=== PATIENT | male | born 1945 | race Caucasian/White ===

== ENCOUNTER 2017-09-14 10:34 | Inpatient (IN) | payer MEDICARE, BC ==
[2017-09-13 15:25] LABS: BASOPHILS % (AUTO) 0.4 % (0-1); EOSINOPHILS # (AUTO) 0.1 X10'3 (0-0.9); EOSINOPHILS % (AUTO) 1.3 % (0-6); HEMATOCRIT 47.3 % (42.0-52.0); HEMOGLOBIN 16.1 g/dl (14.0-17.9); LYMPHOCYTES # (AUTO) 1.6 X10'3 (1.1-4.8); MEAN CORPUSCULAR HEMOGLOBIN 32.2 PG (27.0-31.0); MEAN CORPUSCULAR VOLUME 94.7 FL (78-98); MEAN PLATELET VOLUME 7.2 FL (7.4-10.4); MONOCYTES # (AUTO) 0.6 X10'3 (0-0.9); MONOCYTES % (AUTO) 6.1 % (2-12); NEUTROPHILS # (AUTO) 7.2 X10'3 (1.8-7.7); NEUTROPHILS % (AUTO) 75.2 % (42-75); PLATELET COUNT 230 X10'3 (140-440); RED BLOOD COUNT 4.99 X10'6 (4.70-6.10); RED CELL DISTRIBUTION WIDTH 14.4 % (11.5-14.5); WHITE BLOOD COUNT 9.5 X10'3 (4.5-11.0)
[2017-09-13 15:35] LABS: PARTIAL THROMBOPLASTIN TIME 26 SECONDS (22-32); PROTHROMBIN TIME 10.3 SECONDS (9.0-12.0)
[2017-09-13 15:36] LABS: ALBUMIN 3.4 G/DL (3.4-5.0); ANION GAP 9 (8-16); BLOOD UREA NITROGEN 25 MG/DL (7-18); BUN/CREATININE RATIO 18.7 (5.4-32.0); CALCIUM 8.5 MG/DL (8.5-10.1); CHLORIDE 104 MMOL/L (99-107); CREATININE 1.34 MG/DL (0.60-1.10); GLUCOSE 201 MG/DL (70-104); POTASSIUM 4.2 MMOL/L (3.5-5.1); SODIUM 139 MMOL/L (135-145); TOTAL CARBON DIOXIDE 26.3 MMOL/L (24-32); eGFR 52 ML/MIN
[2017-09-14] VITALS (15 sets, daily range): BP systolic 91–166; BP diastolic 41–76
[~2017-09-14] VITALS: Ht 167.6 cm; Wt 94.7 kg
[2017-09-14] MEDS ORDERED: LORazepam 0.5 MG tablet PO PRN (11:00)
[2017-09-14] MEDS ORDERED: diphenhydrAMINE 25mg capsule PO PRN (11:00)
[2017-09-14] MEDS ORDERED: LOSA50TA37 PO (11:24)
[2017-09-14] MEDS ORDERED: METO-395 PO (11:24)
[2017-09-14] MEDS ORDERED: ASPI-1265 PO (11:24)
[2017-09-14] MEDS ORDERED: MV-M1TAB19 PO (11:24)
[2017-09-14] MEDS ORDERED: PRAV40TA3 PO (11:24)
[2017-09-14] MEDS ORDERED: TICA90TA2 PO (11:24)
[2017-09-14] MEDS ORDERED: LINA5TAB4 PO (11:24)
[2017-09-14] MEDS: normal saline 1000ml 1,000 ML IV SCH ×2 (12:16→21:00)
[2017-09-14] MEDS ORDERED: fentaNYL/PF 50MCG/1 ML 2ML syringe ONE (14:06)
[2017-09-14] MEDS ORDERED: iohexol 350MG/ML 100ml bottle IV ONE (14:06)
[2017-09-14] MEDS ORDERED: iohexol 350 MG/ML 50ML vial IV ONE (14:06)
[2017-09-14] MEDS ORDERED: midazolam 2 mg/2 ml injection ONE (14:06)
[2017-09-14] MEDS ORDERED: nitroGLYCERIN-Tridil 50MG/D5W 250 ML IV ONE (14:06)
[2017-09-14] MEDS ORDERED: LIDOcaine 1% w/EPI 1:100,000 30ml vial (MDV) ONE (14:06)
[2017-09-14] MEDS ORDERED: heparin 1,000unit/ml 10ml vial 10 ML ONE (14:06)
[2017-09-14] MEDS ORDERED: iohexol 350 MG/1 ML 200ml bottle ONE (15:00)
[2017-09-14] MEDS ORDERED: ticagrelor 90mg tablet ONE (15:44)
[2017-09-14] MEDS ORDERED: proCHLORperazine 10 MG/2 ml inj IV PRN (16:45)
[2017-09-14] MEDS ORDERED: OXAZEpam 15mg capsule PO PRN (16:45)
[2017-09-14] MEDS ORDERED: magnesium hydroxide 30ml (MOM) UD suspension PO PRN (16:45)
[2017-09-14] MEDS ORDERED: HYDROcodone/acetaminophen 10/325mg tab PO PRN (16:45)
[2017-09-14] MEDS ORDERED: acetaminophen 325mg tablet PO PRN (16:45)
[2017-09-14] MEDS ORDERED: cyclobenzaprine 10mg tablet PO PRN (16:45)
[2017-09-14] MEDS ORDERED: heparin 10,000 units/1 ML INJ IV PRN (16:50)
[2017-09-14] MEDS: sodium bicarbonate (8.4%) inj. 150 MEQ in sodium chloride 0.45% 1,000 ML IV SCH (18:09)
[2017-09-14] MEDS ORDERED: ticagrelor 90mg tablet PO SCH (20:00)
[2017-09-14] MEDS: docusate sod 100mg capsule PO SCH (21:32)
[2017-09-14] MEDS: HYDROcodone/acetaminophen 10/325mg tab PO PRN (21:34)
[2017-09-14] MEDS ORDERED: acetylcysteine 200 MG/ml 4ml vial PO ONE (22:35)
[2017-09-15] VITALS (18 sets, daily range): BP systolic 126–172; BP diastolic 54–71
[2017-09-15] MEDS ORDERED: hydrALAZINE 20mg/ml inj. IV PRN
[2017-09-15] MEDS ORDERED: nitroGLYCERIN-Tridil 50MG/D5W 250 ML IV PRN
[2017-09-15 04:11] LABS: CHOL/HDL RATIO 3.2 (0.00-4.99); CHOLESTEROL 111 MG/DL (0-200); HDL CHOLESTEROL 35 MG/DL (35-60); LDL CHOLESTEROL 69 MG/DL (50-100); TRIGLYCERIDES 64 MG/DL (20-135)
[2017-09-15] MEDS: sodium bicarbonate (8.4%) inj. 150 MEQ in sodium chloride 0.45% 1,000 ML IV SCH ×2 (05:15→06:26)
[2017-09-15] MEDS ORDERED: fentaNYL/PF 50MCG/1 ML 2ML syringe ONE (06:17)
[2017-09-15] MEDS ORDERED: nitroGLYCERIN-Tridil 50MG/D5W 250 ML IV ONE (06:17)
[2017-09-15] MEDS ORDERED: iohexol 350 MG/1 ML 200ml bottle ONE (06:17)
[2017-09-15] MEDS ORDERED: LIDOcaine 1% w/EPI 1:100,000 30ml vial (MDV) ONE ×2 (06:17→14:10)
[2017-09-15] MEDS ORDERED: heparin 1,000unit/ml 10ml vial 10 ML ONE (06:17)
[2017-09-15] MEDS ORDERED: midazolam 2 mg/2 ml injection ONE (06:17)
[2017-09-15] MEDS: normal saline 1000ml 1,000 ML IV SCH ×2 (07:00→17:00)
[2017-09-15] MEDS ORDERED: atropine 0.1mg/ml 10ml syringe ONE (07:31)
[2017-09-15] MEDS ORDERED: iohexol 350MG/ML 100ml bottle IV ONE (07:53)
[2017-09-15] MEDS: ticagrelor 90mg tablet PO SCH ×2 (08:00→19:17)
[2017-09-15] MEDS ORDERED: linagliptin 5mg tablet PO SCH (08:00)
[2017-09-15] MEDS ORDERED: non-formulary drug (Mv-Mn/Iron/Fa/Herbal Cmplx#190 (Vitamin D3 Complete Caplet) 1 EACH) PO SCH (08:00)
[2017-09-15] MEDS ORDERED: losartan 50mg tablet PO SCH (08:00)
[2017-09-15] MEDS ORDERED: aspirin 81mg tab.chew PO SCH ×2 (08:00)
[2017-09-15] MEDS ORDERED: metoprolol succinate 25mg (24-HOUR) SR. Tablet PO SCH (08:00)
[2017-09-15] MEDS ORDERED: pravastatin 40mg tablet PO SCH (08:00)
[2017-09-15] MEDS ORDERED: heparin 1,000 UNITS/NS 500ml 500 ML ONE (08:07)
[2017-09-15] MEDS ORDERED: HYDROmorphone 1 mg/ml syringe ONE (08:24)
[2017-09-15] MEDS ORDERED: ticagrelor 90mg tablet ONE (08:27)
[2017-09-15] MEDS: acetylcysteine 200 MG/ml 4ml vial PO SCH ×2 (10:12→19:17)
[2017-09-15] MEDS: docusate sod 100mg capsule PO SCH ×2 (10:13→19:17)
[2017-09-15] MEDS: HYDROcodone/acetaminophen 10/325mg tab PO PRN (10:14)
[2017-09-15] MEDS ORDERED: ATOR80TA PO (10:15)
[2017-09-15 11:02] LABS: ALBUMIN 2.7 G/DL (3.4-5.0); ANION GAP 8 (8-16); BLOOD UREA NITROGEN 16 MG/DL (7-18); BUN/CREATININE RATIO 12.4 (5.4-32.0); CALCIUM 7.9 MG/DL (8.5-10.1); CHLORIDE 102 MMOL/L (99-107); CREATININE 1.29 MG/DL (0.60-1.10); GLUCOSE 242 MG/DL (70-104); SODIUM 136 MMOL/L (135-145); TOTAL CARBON DIOXIDE 25.9 MMOL/L (24-32); eGFR 55 ML/MIN
[2017-09-15 15:40] LABS: ISTAT Hct MIX 43 %PCV (42-52); ISTAT O2 SATURATION MIX VENOUS 65 % (60-80); ISTAT SOURCE MIX
[2017-09-15] MEDS ORDERED: atorvastatin 20mg tablet PO SCH (19:12)
[2017-09-16] MEDS ORDERED: atorvastatin 20mg tablet PO SCH (08:00)
[2017-09-19 05:11] LABS: ISTAT Hct ART 44 %PCV (42-52); ISTAT O2 SATURATION ARTERIAL 96 % (95-98); ISTAT SOURCE ART
== END 2017-09-15 19:40 | disposition home or self-care (01) | DRG 246 ==
LOC: SSTAY O 10:34 → ICU 2S 16:00
PROVIDERS: ADMIT Internal Medicine Cardiovascular Disease; ATTEND Internal Medicine Cardiovascular Disease
PROC: 4A023N7 Measurement of Cardiac Sampling and Pressure, Left Heart, Percutaneous Approach (ICD-10-PCS; principal; 2017-09-14)
PROC: 027034Z Dilation of Coronary Artery, One Artery with Drug-eluting Intraluminal Device, Percutaneous Approach (ICD-10-PCS; 2017-09-14)
PROC: B2111ZZ Fluoroscopy of Multiple Coronary Arteries using Low Osmolar Contrast (ICD-10-PCS; 2017-09-14)
PROC: B2151ZZ Fluoroscopy of Left Heart using Low Osmolar Contrast (ICD-10-PCS; 2017-09-14)
PROC: B3101ZZ Fluoroscopy of Thoracic Aorta using Low Osmolar Contrast (ICD-10-PCS; 2017-09-14)
PROC: B2131ZZ Fluoroscopy of Multiple Coronary Artery Bypass Grafts using Low Osmolar Contrast (ICD-10-PCS; 2017-09-14)
PROC: 02713ZZ Dilation of Coronary Artery, Two Arteries, Percutaneous Approach (ICD-10-PCS; 2017-09-15)
PROC: 4A023N8 Measurement of Cardiac Sampling and Pressure, Bilateral, Percutaneous Approach (ICD-10-PCS; 2017-09-15)
PROC: 027137Z Dilation of Coronary Artery, Two Arteries with Four or More Drug-eluting Intraluminal Devices, Percutaneous Approach (ICD-10-PCS; 2017-09-15)
DX: I25.709 Atherosclerosis of coronary artery bypass graft(s), unspecified, with unspecified angina pectoris (principal); I25.119 Atherosclerotic heart disease of native coronary artery with unspecified angina pectoris; I12.9 Hypertensive chronic kidney disease with stage 1 through stage 4 chronic kidney disease, or unspecified chronic kidney disease; E11.22 Type 2 diabetes mellitus with diabetic chronic kidney disease; N18.9 Chronic kidney disease, unspecified; E78.5 Hyperlipidemia, unspecified; Z95.5 Presence of coronary angioplasty implant and graft; Z79.82 Long term (current) use of aspirin; Z79.84 Long term (current) use of oral hypoglycemic drugs; Z79.899 Other long term (current) drug therapy
CPT/HCPCS: 93459; 93460; C9600; C9601; 36415; 80048; 80061; 82803; 82948; 85014; 85025; 85347; 85610; 85730; 93005; 99152; 99153; A4620; A6213; A6257; A6449; C1725; C1760; C1769; C1874; C1894; J0461; J1170; J1644; J2250; J3010; J3490; J7030; Q0163; Q9967

== ENCOUNTER 2021-06-10 06:58 | Day surgery (SDC) | payer MEDICARE, BC ==
[2021-06-09 11:01] LABS: BASOPHILS % (AUTO) 0.4 % (0-1); EOSINOPHILS # (AUTO) 0.1 X10'3 (0-0.9); EOSINOPHILS % (AUTO) 1.3 % (0-6); HEMATOCRIT 46.1 % (42.0-52.0); HEMOGLOBIN 15.7 g/dl (14.0-17.9); LYMPHOCYTES # (AUTO) 1.5 X10'3 (1.1-4.8); LYMPHOCYTES % (AUTO) 13.6 % (21-51); MEAN CORPUSCULAR HEMOGLOBIN 31.5 PG (27.0-31.0); MEAN CORPUSCULAR VOLUME 92.6 FL (78-98); MEAN PLATELET VOLUME 7.1 FL (7.4-10.4); MONOCYTES # (AUTO) 0.9 X10'3 (0-0.9); MONOCYTES % (AUTO) 8.6 % (2-12); NEUTROPHILS # (AUTO) 8.2 X10'3 (1.8-7.7); NEUTROPHILS % (AUTO) 76.1 % (42-75); PLATELET COUNT 241 X10'3 (140-440); RED BLOOD COUNT 4.98 X10'6 (4.70-6.10); RED CELL DISTRIBUTION WIDTH 14.3 % (11.5-14.5); WHITE BLOOD COUNT 10.8 X10'3 (4.5-11.0)
[2021-06-09 11:09] LABS: ALBUMIN 3.6 G/DL (3.4-5.0); ANION GAP 6 (8-16); BLOOD UREA NITROGEN 20 MG/DL (7-18); BUN/CREATININE RATIO 17.4 (5.4-32.0); CHLORIDE 105 MMOL/L (99-107); CREATININE 1.15 MG/DL (0.60-1.10); GLUCOSE 124 MG/DL (70-104); POTASSIUM 4.4 MMOL/L (3.5-5.1); SODIUM 138 MMOL/L (135-145); TOTAL CARBON DIOXIDE 27.4 MMOL/L (24-32); eGFR 62 ML/MIN
[2021-06-09 11:12] LABS: APTT 26 SECONDS (22-32)
[~2021-06-10] VITALS: Ht 170.2 cm; Wt 87.5 kg
[2021-06-10] VITALS (13 sets, daily range): BP systolic 104–162; BP diastolic 56–72
[~2021-06-10 06:58] MED LIST: ASPI-1265 PO; ATOR80TA PO; LINA5TAB4 PO; LOSA50TA64 PO; METO-395 PO; MV-M1TAB19 PO; TICA90TA2 PO
[2021-06-10] MEDS ORDERED: normal saline 1,000 ML IV SCH (07:20)
[2021-06-10] MEDS ORDERED: diphenhydrAMINE 25mg capsule PO PRN (07:20)
[2021-06-10] MEDS ORDERED: LORazepam 0.5 MG tablet PO PRN (07:20)
[2021-06-10] MEDS ORDERED: ROSU40TA22 PO (07:34)
[2021-06-10] MEDS ORDERED: CLOP75TA34 PO (07:34)
[2021-06-10] MEDS ORDERED: CHOL200080 PO (07:35)
[2021-06-10] MEDS ORDERED: METF-438 PO (07:36)
[2021-06-10] MEDS ORDERED: EMPA10TA PO (07:37)
[2021-06-10] MEDS ORDERED: midazolam 1 mg/ML 2ml injection ONE (08:09)
[2021-06-10] MEDS ORDERED: nitroGLYCERIN-Tridil 50MG/D5W 250 ML IV ONE (08:09)
[2021-06-10] MEDS ORDERED: fentaNYL/PF 50MCG/1 ML 2ML syringe ONE (08:09)
[2021-06-10] MEDS ORDERED: LIDOcaine 1% (10mg/ml)w/preservative inj. 20ml MDV ONE (08:10)
[2021-06-10] MEDS ORDERED: iohexol 350 MG/1 ML 200ml bottle ONE (08:10)
[2021-06-10] MEDS ORDERED: iohexol 350 MG/ML 50ML vial IV ONE (08:10)
[2021-06-10] MEDS ORDERED: heparin 1,000unit/ml 10ml vial 10 ML ONE (08:10)
== END 2021-06-10 15:25 | disposition home or self-care (01) ==
LOC: SSTAY O 06:58
PROVIDERS: ATTEND Internal Medicine Cardiovascular Disease
DX: R94.39 Abnormal result of other cardiovascular function study (principal); I25.810 Atherosclerosis of coronary artery bypass graft(s) without angina pectoris; I25.2 Old myocardial infarction; E78.5 Hyperlipidemia, unspecified; I35.0 Nonrheumatic aortic (valve) stenosis; F03.90 Unspecified dementia, unspecified severity, without behavioral disturbance, psychotic disturbance, mood disturbance, and anxiety; E11.22 Type 2 diabetes mellitus with diabetic chronic kidney disease; I12.9 Hypertensive chronic kidney disease with stage 1 through stage 4 chronic kidney disease, or unspecified chronic kidney disease; N18.9 Chronic kidney disease, unspecified; M10.9 Gout, unspecified; E66.9 Obesity, unspecified; Z68.31 Body mass index [BMI] 31.0-31.9, adult; Z98.41 Cataract extraction status, right eye; Z98.42 Cataract extraction status, left eye; Z79.01 Long term (current) use of anticoagulants; Z79.82 Long term (current) use of aspirin; Z79.899 Other long term (current) drug therapy; Z79.84 Long term (current) use of oral hypoglycemic drugs; Z98.890 Other specified postprocedural states; Z95.5 Presence of coronary angioplasty implant and graft; Z87.891 Personal history of nicotine dependence; Z81.8 Family history of other mental and behavioral disorders; Z82.3 Family history of stroke; Z82.49 Family history of ischemic heart disease and other diseases of the circulatory system
CPT/HCPCS: 36415; 76937; 80048; 82948; 85025; 85610; 85730; 93005; 93459; 99152; 99153; C1760; C1769; C1894; J1644; J2250; J3010; J3490; J7030; Q0163; Q9967; A4620; A6258